=== PATIENT | male | born 2000 | race Two or more races ===

== ENCOUNTER 2023-12-02 06:58 | Emergency (ER) | payer MEDICAID, OTHER ==
[~2023-12-02] VITALS: Ht 188 cm; Wt 76.7 kg
[2023-12-02 08:02] VITALS: BP 141/85; PULSE 85; RESP 18; TEMP 98.1; O2SAT 100
== END 2023-12-02 08:09 | disposition home or self-care (01) ==
LOC: ER 06:58
DX: T16.2XXA Foreign body in left ear, initial encounter (principal); W22.8XXA Striking against or struck by other objects, initial encounter; Y93.89 Activity, other specified; Y92.89 Other specified places as the place of occurrence of the external cause; Y99.8 Other external cause status
CPT/HCPCS: 69200; 69209